=== PATIENT | female | born 1950 | race Two or more races ===

== ENCOUNTER 2019-06-09 13:28 | Emergency (ER) | payer OTHER ==
[~2019-06-09] VITALS: Ht 167.6 cm; Wt 70.3 kg
[2019-06-09] MEDS ORDERED: SYNTHROID50 MCG (14:00)
== END 2019-06-09 16:00 | disposition home or self-care (01) ==
LOC: ER 13:28
DX: S01.01XA Laceration without foreign body of scalp, initial encounter (principal); W26.8XXA Contact with other sharp object(s), not elsewhere classified, initial encounter; Y93.89 Activity, other specified; Y92.89 Other specified places as the place of occurrence of the external cause; Y99.8 Other external cause status